=== PATIENT | male | born 1955 | race Caucasian/White ===

== ENCOUNTER 2017-04-02 09:45 | Observation (INO) | payer OTHER ==
[~2017-04-02] VITALS: Ht 182.9 cm; Wt 116.3 kg
--- NOTE | ~2017-04-02 | ER ---
PATIENT'S NAME: RADHA LEMUS [facility] AGE: 61 Y [address] ROOM: [place] [address] LOCATION: GPCU ADMIT DATE: 04/02/2017 ER/Outpatient Report DISCHARGE DATE: 04/03/2017 FAMILY PHYSICIAN: ALONDRA AVERY ATTENDING PHYSICIAN: JOHN MIRELES Time of Arrival: 0945 hours. Time of Evaluation: 1017 hours. IDENTIFICATION: A 61-year-old male. CHIEF COMPLAINT: Fatigue and lightheadedness and dizzy. HISTORY OF PRESENT ILLNESS: The patient has felt just as overwhelming fatigue for the last 1 week, worse with exertion. He is moving from [place] to [place]. They were without air conditioning in their new place and thought maybe the "heat is getting to me." One week ago, he had a 5-minute episode of chest discomfort, which self resolved. It was with activity and resolved with rest. He feels like when he stands up he just does not feel quite balanced. He feels both lightheaded and dizzy. He had mitral valve replaced in [place] in October 2016. His motel front desk clerk is in [place], but he does have an appointment to see their motel front desk clerk next Wednesday and then Dr. Bienvenido Lui to transition his care on April 13. He denies chest pain today. He has not had any recent lab work. ALLERGIES: PENICILLIN, SOUNDS LIKE IT CAUSES STOMACH UPSET. CURRENT MEDICATIONS: 1. Digoxin 0.25 mg daily. 2. Coumadin 5 mg Wednesday through Wednesday, 2.5 mg on Wednesday. 3. Bumex 1 mg b.i.d. 4. KCl 20 mEq b.i.d. 5. Cardizem 180 mg daily. 6. Levothyroxine 200 mcg daily. 7. Crestor 20 mg at bedtime. 8. Wellbutrin 150 mg daily. 9. Ativan 1 mg daily. MEDICAL PROBLEMS: Valvular heart disease, status post recent mitral valve replacement; atrial fibrillation, on chronic anticoagulation; hypothyroidism; anxiety; and history PATIENT'S NAME: RADHA LEMUS [facility] AGE: 61 Y [address] ROOM: [place] [address] LOCATION: GPCU ADMIT DATE: 04/02/2017 ER/Outpatient Report DISCHARGE DATE: 04/03/2017 FAMILY PHYSICIAN: ALONDRA AVERY ATTENDING PHYSICIAN: JOHN MIRELES of congestive heart failure. PRIOR SURGERIES: Maze procedure, unsuccessful for atrial fibrillation. Mitral valve replaced in October 2016. SOCIAL HISTORY: The patient just recently moved to [place] from [place]. Tobacco use, quit 10 years ago. Alcohol use, denies. Drug use, denies. REVIEW OF SYSTEMS: All systems reviewed and negative other than what is noted in the HPI. Specifically, he did have a heart cath prior to this last surgery, showing he has had at most 30% obstructive lesions. He has had no previous DC and no history of stenting. He has had some increased lower extremity edema recently, but his daughter said that it is back down today. PHYSICAL EXAMINATION: VITAL SIGNS: Height 6 feet and 0 inches, weight 117.2 kg, blood pressure 117/65, pulse 57, respirations 18, temperature 97.8, and saturations 91% on room air. GENERAL: A 61-year-old male in no acute distress. HEENT: Head: Normocephalic and atraumatic. Ears: TMs translucent both ears. Eyes: Pupils equal and reactive to light and accommodation. Extraocular movements intact. Nose: Mucosa pink. No lesions or drainage. Mouth: No lesions. Pharynx benign. NECK: Supple. No lymphadenopathy. LUNGS: Clear to auscultation. HEART: Regular rate and rhythm. The click of the mitral valve is present and he has a 2/6 systolic murmur. ABDOMEN: Bowel sounds present. Soft. Nondistended. No hepatosplenomegaly. No palpable masses. Nontender. SKIN: [place], warm, and dry. No lesions or rashes noted. NEURO: The patient is alert and oriented x4. Cranial nerves II through XII grossly intact. Motor strength 5/5 throughout. Sensation is intact to light touch. The patient has trace of lower extremity edema. No calf tenderness. LABORATORY DATA AND X-RAYS: EKG showed atrial fibrillation with slow ventricular response, 51 beats per minute. T-wave inversion with scooped segments consistent with digoxin effect. No previous EKG available for comparison. Heart rates remained in the 45 to 50 range throughout his stay here in the emergency room. Hemoglobin 15.4, hematocrit 45.8, platelets 191, and white count 7.9 with a normal differential. INR 2.2. ProBNP 1339. TSH 0.423. Dig level is supratherapeutic at 2.09. Sodium 144, potassium 3.8, chloride 106, CO2 of 29, PATIENT'S NAME: RADHA LEMUS [facility] AGE: 61 Y [address] ROOM: [place] [address] LOCATION: GPCU ADMIT DATE: 04/02/2017 ER/Outpatient Report DISCHARGE DATE: 04/03/2017 FAMILY PHYSICIAN: ALONDRA AVERY ATTENDING PHYSICIAN: JOHN MIRELES BUN 18, creatinine 1.3, and blood sugar 133. Liver enzymes normal. Cardiac enzymes negative x1. Magnesium is 2.4. One view chest x-ray showed cardiomegaly, no acute findings, pending Radiology over-read. IMPRESSION: 1. Dizziness possibly secondary to bradycardia and digoxin toxicity. The patient had orthostatic blood pressures checked in the emergency room with no evidence of orthostatic hypotension. 2. Digoxin toxicity. 3. Valvular heart disease, status post mitral valve replacement. 4. Hypothyroidism with fatigue. Has a normal TSH. The patient will be admitted to observation per Dr. Mireles. Dr. Mireles evaluated the patient in the emergency room. RUSTAM LOWERY MD CAR/modl /[id number] d: 04/03/173 t: 04/09/17 0711, OUTPATIENT REPORT
--- NOTE | ~2017-04-02 | HP ---
PATIENT'S NAME: RADHA LEMUS [facility] AGE: 61 Y [address] ROOM: [place] [address] LOCATION: GPCU ADMIT DATE: 04/02/2017 History & Physical DISCHARGE DATE: FAMILY PHYSICIAN: ALODNRA AVERY ATTENDING PHYSICIAN: JOHN GALEAS DATE OF SERVICE: CHIEF COMPLAINT: Fatigue, not feeling right. HISTORY OF PRESENT ILLNESS: This is a 61-year-old gentleman with a past medical history of mitral valve regurgitation, status post mitral valve replacement, status post Maze procedure and on long-term anticoagulation with Coumadin, who recently moved from [place] to [place], presented to the emergency department with fatigue and not feeling right. Onset of symptoms were in the last 4 or 5 days. He really could not tell what is exactly bothering him. He has just tiredness and fatigue. On inquiry, he denied any headache, any trouble with the eyes. He denied any changes in color, vision. He denied any stomach upset, any nausea, any vomiting, any chest pain, any dizziness, any palpitations, any shortness of breath, cough, sputum production, abdominal pain, constipation, diarrhea, burning on urination. He does not complain of any PND, orthopnea, or leg swelling. REVIEW OF SYSTEMS: All other systems reviewed and were negative, except what is mentioned in the HPI. PAST MEDICAL HISTORY: 1. Mitral valve regurgitation, status post mitral valve replacement, on long- term anticoagulation. 2. Atrial fibrillation, status post Maze procedure. 3. Hypertension. MEDICATIONS: Notably, the patient is on: 1. Digoxin. 2. Cardizem. 3. Levothyroxine. Rest of the medications are being reconciled right now. ALLERGIES: NO KNOWN DRUG ALLERGIES. PATIENT'S NAME: RADHA LEMUS [facility] AGE: 61 Y [address] ROOM: [place] [address] LOCATION: GPCU ADMIT DATE: 04/02/2017 History & Physical DISCHARGE DATE: FAMILY PHYSICIAN: ALONDRA AVERY ATTENDING PHYSICIAN: JOHN GALEAS SOCIAL HISTORY: Quit smoking 10 years ago. No alcohol. Lives with daughter and , and recently moved from [place] to [place]. He sees Dr. Akins over there. FAMILY HISTORY: Positive for heart failure in both mom and dad. One of the siblings did undergo mitral valve replacement as well. REVIEW OF SYSTEMS: All the systems reviewed and were negative, except what is mentioned in the HPI. PHYSICAL EXAMINATION: VITAL SIGNS: Blood pressure 118/64, heart rate 62, afebrile, respiratory rate of 18. GENERAL: No acute distress. Alert and oriented x3. HEENT: Head: Atraumatic, normocephalic. Eyes: Nonicteric. No pallor. Oropharynx: Moist mucous membranes. CARDIOVASCULAR: S1, S2. Systolic ejection murmur at the base of the heart, radiating to the axilla. LUNGS: Clear to auscultation bilaterally. ABDOMEN: Soft, nontender, and nondistended. Bowel sounds present. EXTREMITIES: No clubbing, cyanosis, or edema. PSYCHIATRIC: Normal affect, mood, and speech. NEUROLOGIC: Cranial nerves 2 through 12 intact. No motor or sensory deficits. ENDOCRINE: No thyromegaly or cushingoid features noted. LYMPHATICS: No lymphangitis or lymphadenopathy noted. LABORATORY DATA: Lab work done in the emergency department: Chest x-ray was within normal limits. EKG was done, which showed sinus bradycardia with ST-segment depression in the anterior and lateral leads which appears to be secondary to digoxin use. Lab work: All the lab work was unremarkable, except for dig level of 2.0, our cutoff value is 1.99. ASSESSMENT: 1. Fatigue, not clear etiology at this point. 2. Mitral valve replacement. 3. Atrial fibrillation. 4. Hypertension. PATIENT'S NAME: RADHA LEMUS [facility] AGE: 61 Y [address] ROOM: [id number] [place], [place] [address] LOCATION: GPCU ADMIT DATE: 04/02/2017 History & Physical DISCHARGE DATE: FAMILY PHYSICIAN: ALONDRA AVERY ATTENDING PHYSICIAN: JOHN GALEAS PLAN: 1. We are going to admit this patient. Orthostatic vitals have been negative in the emergency department. He has been on Bumex. Could be dehydrated and the lack of air conditioning in the house. Going to resuscitate with Ringer's lactate for 500 mL to see if that improves. Continuous telemonitoring and EKG in the morning. Get the dig level in the morning. Discussed the case with Dr. Cummings, who recommended decreasing the dose of digoxin. We will not obtain any formal cardiac consultation at this point. I will monitor this patient and see how he does. Pharmacy to dose Coumadin. INR target is 2-3. 2. Diet: Low-sodium diet. 3. Activity: As tolerated. The patient is full code. MD TAMMY BREEN/chase /[id number] D: [id number] T: [id number] HISTORY & PHYSICAL
--- NOTE | ~2017-04-02 | DS ---
PATIENT'S NAME: RADHA LEMUS [facility] AGE: 61 Y [address] ROOM: [id number] [place], [place] [address] LOCATION: GPCU ADMIT DATE: 04/02/2017 Discharge Summary DISCHARGE DATE: 04/03/2017 FAMILY PHYSICIAN: ALONDRA AVERY ATTENDING PHYSICIAN: Hiro Mireles DISCHARGE DIAGNOSES: 1. Acute kidney injury. 2. Atrial fibrillation with controlled ventricular rate. 3. Hypertension. 4. Mitral valve replaced on oral anticoagulation. HOSPITAL COURSE: A 61-year-old gentleman with a past medical history of mitral replacement on oral anticoagulation, atrial fibrillation with controlled ventricular rate on digoxin, who recently moved from [place] to [place] to live with his daughter and presented with fatigue and not feeling right and shaking wobbly on his feet. He was admitted to the [facility]. Initial evaluation with a CAT scan was negative. EKG was done, which did show changes of chronic digoxin use. Initial digoxin level was 2.01. CHE was found on the BMP with a creatinine of 1.3. He was admitted to the hospital for observation. He was given IV fluids and his Bumex was held as well as digoxin. During the course of the next 24 hours, he recovered very well, and he will be discharged today. He was advised to decrease his dose of digoxin into half would be 125 mcg per day. He was also advised to decrease the dose of Bumex from 2 mg to 1 mg daily. The patient has been seeing a cargo services coordinator in [place] and now he is going to establish care with Dr. Lui and he has an appointment with him on 04/13/2017. DISCHARGE MEDICATIONS: Include: 1. Wellbutrin 150 mg p.o. everyday. 2. Levothyroxine 200 mcg p.o. everyday. 3. Lorazepam 1 mg p.o. everyday. 4. Simvastatin 20 mg p.o. every night at bedtime. 5. Coumadin as directed. 6. Digoxin 125 mcg p.o. daily. 7. Bumex 1 mg once daily. 8. Potassium chloride 20 mEq once daily. 9. Diltiazem 180 mg p.o. everyday. DISCHARGE ACTIVITY: As tolerated. DIET: Low-sodium diet. FOLLOWUP: Follow up with Dr. Lui. PATIENT'S NAME: RADHA LEMUS [facility] AGE: 61 Y [address] ROOM: [place] [address] [facility] ADMIT DATE: 04/02/2017 Discharge Summary DISCHARGE DATE: 04/03/2017 FAMILY PHYSICIAN: ALONDRA AVERY ATTENDING PHYSICIAN: Hiro Mireles MD TAMMY BREEN/petel /[id number] d: 04/04/17 0240 t: 04/12/17 0844, DISCHARGE SUMMARY
--- NOTE | ~2017-04-02 | ECHO ---
Transthoracic Echocardiography Report (TTE) Demographics Patient Name RADHA LEMUS Date of Study 04/03/2017 Patient Number [id number] Visit Number [id number] Date of 1955 Room Number G6339 Gender Male Number Age 61 year(s) Referring Aline Bello Batting Machine Operator Moiz Potts RVT Physician Physician Interpreting Amira Brown Advertising Columnist Physician MD Emiliano Bowles MD Supervising Ordering Aline Bello MD/MLP Physician Nurse Stress Suppository Molding Machine Operator Conclusions Contractility Score Summary Global Left Ventricular Hypokinesis was noted. Summary The estimated left ventricular ejection fraction is 35-40%. History of mitral valve replacement. Mean gradient is 4 mmHg. No paravalvular leak The aortic valve is moderately sclerotic. There is mild aortic regurgitation by color Doppler. Mild tricuspid regurgitation by color Doppler. There is mild pulmonary hypertension. The pulmonary pressure (RVSP) is 39 mmHg. The aortic root appears mildly dilated. The maximum diameter measures 3.6 cm. Procedure Type of Study TTE procedure:2D Echocardiogram. Procedure Date Date: 04/03/2017 Start: 08:16 AM Study Location: Inpatient Portable Technical Quality: Adequate visualization Indications:History of mitral valve replacement. Appropriate Use Criteria: 9 Patient Status: Routine HR: 57 bpm BP: 132/75 mmHg M-Mode/2D Measurements LV Diastolic Dimension: 5.53 cm LV Systolic Dimension: 3.51 cm LV Septum Diastolic: 1.28 cm LV PW Diastolic: 1.22 cm AO Root Dimension: 3.6 cm Cardiac Output: 2.83 l/min AV Cusp Separation: 1.9 cm RV Diastolic Dimension: 3.58 cm LVOT: 2 cm LVOT VTI: 15.8 cm RV Base: 3.36 cm LV Stroke volume: 49.61 ml RV Length: 6.79 cm TAPSE: 1.06 cm TDI-S': 5.87 cm/s Doppler Measurements AV Peak Velocity: 2.47 m/s MV Peak E-Wave: 1.34 m/s AV Peak Gradient: 24.4 mmHg AV Mean Gradient: 10 mmHg MV P1/2t: 65 msec LVOT Peak Velocity: 0.85 m/s MV Mean Gradient: 4 mmHg TR Velocity:2.67 m/s PV Peak Velocity: 0.75 m/s TR Gradient:28.52 mmHg PV Peak Gradient: 2.26 mmHg Estimated RAP:10 mmHg Estimated PASP: 38.52 mmHg Estimated RVSP: 39 mmHg A' Lateral Velocity: 0.04 m/s E' Septal Velocity: 0.06 m/s E' Lateral Velocity: 0.1 m/s Findings Left Ventricle Mild concentric left ventricular hypertrophy. The left ventricle is moderately dilated . Right Ventricle Moderetely reduced right ventricular function. Left Atrium The left atrium is severely dilated. Right Atrium The right atrium is severely dilated. IVC measures 1.81 cm with inspiratory collapse. Mitral Valve History of mitral valve replacement. Mean gradient is 4 mmHg. No paravalvular leak Aortic Valve The aortic valve is moderately sclerotic. There is mild aortic regurgitation by color Doppler. Tricuspid Valve Mild tricuspid regurgitation by color Doppler. There is mild pulmonary hypertension. The pulmonary pressure (RVSP) is 39 mmHg. Pulmonic Valve Normal pulmonic valve structure and function. Pericardial Effusion No evidence of pericardial effusion. Miscellaneous The aortic root appears mildly dilated. The maximum diameter measures 3.6 cm. Pleural Effusion No evidence of pleural effusion. Contractility Score LV regional wall motion:(0-Non visualized 1-Normal 2-Hypokinesis 3-Akinesis 4-Dyskinesis 5-Aneurysm) Signature dtt: Jolanta Cummings dtd: 04/03/17 0816 Physician Self Edit
[2017-04-02 10:36] LABS: BASOPHIL % 0.4 %; EOSINOPHIL # 0.1 K/uL (0.0-0.5); EOSINOPHIL % 1.8 %; HEMATOCRIT 45.8 % (37.0-53.0); HEMOGLOBIN 15.4 g/dL (11.0-16.0); IMMATURE GRANULOCYTE % 0.3 %; LYMPHOCYTE # 1.3 K/uL (0.8-4.0); LYMPHOCYTE % 15.9 %; MCH 31.3 pg (27.0-34.0); MCHC 33.6 gm/dL (32.0-36.5); MCV 93.1 fl (83.0-98.0); MONOCYTE # 0.7 K/uL (0.0-1.0); MONOCYTE % 8.4 %; MPV 11.3 fl (9.4-12.4); NEUTROPHIL # (ANC) 5.8 K/uL (1.4-9.0); NEUTROPHIL % 73.2 %; NRBC % 0 /100WBC (0-0.00); PLATELET COUNT 191 K/uL (150-450); RBC 4.92 M/uL (3.50-5.50); RDW-CV 14.5 % (11.9-14.6); WBC 7.9 K/uL (4.0-11.0)
[2017-04-02 10:45] LABS: PROTIME 23.3 SECONDS (9.8-11.4); PTT 33 SECONDS (25-32)
[2017-04-02 10:58] LABS: ALBUMIN 3.4 gm/dL (3.5-5.0); ALK PHOS 116 IU/L (33-138); ALT 20 IU/L (12-78); ANION GAP 12.8 (10.0-19.0); AST 20 IU/L (10-40); BLOOD UREA NITROGEN 18 mg/dL (6-24); CALCIUM 9.1 mg/dL (8.5-10.5); CHLORIDE 106 mMol/L (96-110); CO2 29 mMol/L (22-32); CPK 41 IU/L (35-332); CREATININE 1.3 mg/dL (0.6-1.3); MAGNESIUM 2.4 mg/dL (1.8-2.6); POTASSIUM 3.8 mMol/L (3.7-5.1); SODIUM 144 mMol/L (135-145); TOTAL BILIRUBIN 0.9 mg/dL (0.0-1.5); TOTAL PROTEIN 7.4 g/dL (6.0-8.4)
[2017-04-02 15:39] LABS: BILIRUBIN URINE NEGATIVE (NEGATIVE); BLOOD URINE NEGATIVE /UL (NEGATIVE); COLOR URINE YELLOW (YELLOW); GLUCOSE URINE NEGATIVE (NEGATIVE); KETONE URINE NEGATIVE (NEGATIVE); LEUKOCYTES URINE NEGATIVE /UL (NEGATIVE); NITRITE URINE NEGATIVE (NEGATIVE); PROTEIN URINE NEGATIVE (NEGATIVE); TURBIDITY URINE CLEAR (CLEAR); UROBILINOGEN URINE NORMAL (NORMAL)
[2017-04-02] MEDS ORDERED: LANOXIN (DIGI125 MCG PO (16:04)
[2017-04-02] MEDS ORDERED: COUMADIN ** IA5 MG PO (16:05)
[2017-04-02] MEDS ORDERED: BUMEX1 MG PO (16:06)
[2017-04-02] MEDS ORDERED: COUMADIN **IA2.5 MG PO (16:06)
[2017-04-02] MEDS ORDERED: CARDIZEM CD)(T180 MG PO (16:07)
[2017-04-02] MEDS ORDERED: K-TAB ER20 MEQ PO (16:07)
[2017-04-02] MEDS ORDERED: LEVOTHROID (S200 MCG PO (16:07)
[2017-04-02] MEDS ORDERED: WELLBUTRIN SR150 MG PO (16:08)
[2017-04-02] MEDS ORDERED: CRESTOR20 MG PO (16:08)
[2017-04-02] MEDS ORDERED: ATIVAN 1 MG1 MG PO (16:09)
[2017-04-03 04:52] LABS: INR - (THERAPEUTIC) 2.58 (0.92-1.07); PROTIME 27.3 SECONDS (9.8-11.4)
[2017-04-03 04:54] LABS: ANION GAP 11.9 (10.0-19.0); CALCIUM 8.7 mg/dL (8.5-10.5); POTASSIUM 3.9 mMol/L (3.7-5.1)
== END 2017-04-03 15:00 | disposition disaster alternative care site (69) ==
LOC: GMED 09:45 → GPCU 13:42
PROVIDERS: Family Medicine; ADMIT Internal Medicine
DX: N17.9 Acute kidney failure, unspecified (principal); I48.91 Unspecified atrial fibrillation; I10 Essential (primary) hypertension; I08.0 Rheumatic disorders of both mitral and aortic valves; I27.2 Other secondary pulmonary hypertension; Z87.891 Personal history of nicotine dependence; Z95.2 Presence of prosthetic heart valve; Z79.01 Long term (current) use of anticoagulants
CPT/HCPCS: G0378; J7120